=== PATIENT | female | born 1960 | race Caucasian/White ===

== ENCOUNTER → 2020-04-01 11:01 | Outpatient (BNVA) | payer MEDICARE, MEDICAID, SELFPAY | PROVIDERS: Family Provider Family Medicine; PCP Family Medicine; Visit Provider Nurse Practitioner Family | DX: F41.8 Other specified anxiety disorders; R53.83 Other fatigue; F32.9 Major depressive disorder, single episode, unspecified; H66.90 Otitis media, unspecified, unspecified ear; B37.3 Candidiasis of vulva and vagina | CPT/HCPCS: 80053; 85025 ==

== ENCOUNTER → 2023-03-06 11:29 | Outpatient (BNVA) | payer MEDICARE, MEDICAID, SELFPAY | PROVIDERS: Family Provider Family Medicine; PCP Family Medicine; Visit Provider Nurse Practitioner | DX: I10 Essential (primary) hypertension (principal); S86.911A Strain of unspecified muscle(s) and tendon(s) at lower leg level, right leg, initial encounter; X58.XXXA Exposure to other specified factors, initial encounter | CPT/HCPCS: 73562; 80053; 80061; 84443; 85025 ==

== ENCOUNTER → 2023-09-28 14:18 | Outpatient (BNVA) | payer MEDICARE, MEDICAID, SELFPAY | PROVIDERS: Family Provider Family Medicine; PCP Nurse Practitioner Family; Visit Provider Nurse Practitioner Family | DX: I10 Essential (primary) hypertension (principal); R53.83 Other fatigue; Z13.6 Encounter for screening for cardiovascular disorders; Z79.899 Other long term (current) drug therapy; D64.9 Anemia, unspecified; K29.70 Gastritis, unspecified, without bleeding | CPT/HCPCS: 80053; 80061; 81003; 82272; 82728; 83036; 84443; 85025 ==

== ENCOUNTER 2023-10-12 07:28 | Outpatient (CLI) | payer MEDICARE, MEDICAID, SELFPAY ==
--- NOTE | 2023-10-12 07:30 | US_ITS ---
WS: [id number] Complete ABDOMINAL ULTRASOUND HISTORY: R74.8 - Abnormal levels of other serum enzymes COMPARISON: None available. Liver: 12.1 cm in length. Normal size liver and echogenicity. No bile duct dilatation or mass. Portal Vein: Normal hepatopetal flow with monophasic waveform. Gallbladder: Normally distended gallbladder with no stones or wall thickening. CBD: 0.5 cm Pancreas: Normal size and echogenicity. Right kidney: 9.1 cm x 4.1 x 4.4 cm. Cortex:0.9 cm. Normal size and echogenicity. No hydronephrosis or mass. Left kidney: 8.2 cm x 3.9 cm x 4.2 cm. Cortex: 1.0 cm. Normal size and echogenicity. No hydronephrosis or mass. Spleen: 7.6 cm. Normal size and echogenicity. Aorta and IVC: Unremarkable abdominal aorta and IVC. Impression: Normal complete abdomen ultrasound.
== END 2023-10-12 07:29 | disposition home or self-care (01) ==
LOC: RAD 07:29
PROVIDERS: PCP Nurse Practitioner Family; Visit Provider Nurse Practitioner Family
DX: R74.8 Abnormal levels of other serum enzymes (principal); R79.89 Other specified abnormal findings of blood chemistry; K92.1 Melena; K29.00 Acute gastritis without bleeding
CPT/HCPCS: 76700

== ENCOUNTER 2024-05-01 15:55 | Outpatient (CLI) | payer MEDICARE, MEDICAID, SELFPAY ==
--- NOTE | 2024-05-01 16:00 | MM_ITS ---
WS: [id number] BILATERAL 3D TOMOSYNTHESIS DIGITAL SCREENING MAMMOGRAPHY WITH CAD CLINICAL INFORMATION: SCREENING HISTORY: Screening mammogram. No current complaints. COMPARISON: Outside studies from 2019 TECHNIQUE: Bilateral CC and MLO views. FINDINGS: The breasts are composed of heterogeneous fibroglandular density tissue, which can limit the detectio n of small underlying mass lesions. No suspicious mass, asymmetry, calcifications, or architectural d istortion. No evidence of malignancy. Vascular calcification. MM/MM [facility] tomosynthesis [id number] IMPRESSION: DENSITY: The breasts are heterogeneously dense, which may obscure small masses. BI-RADS: 2 - Benign FOLLOW UP: 1 Year Follow-up Recommend return to annual screening mammography.
== END 2024-05-01 15:56 | disposition home or self-care (01) ==
LOC: MOBLMAM 16:01
PROVIDERS: PCP Nurse Practitioner Family; Visit Provider Nurse Practitioner Family
DX: Z12.31 Encounter for screening mammogram for malignant neoplasm of breast (principal); R92.333 Mammographic heterogeneous density, bilateral breasts; R92.1 Mammographic calcification found on diagnostic imaging of breast
CPT/HCPCS: 77063; 77067

== ENCOUNTER → 2024-06-12 14:51 | Outpatient (BNVA) | payer MEDICARE, MEDICAID, SELFPAY | PROVIDERS: PCP Nurse Practitioner Family; Visit Provider Podiatrist Foot & Ankle Surgery | DX: S82.852A Displaced trimalleolar fracture of left lower leg, initial encounter for closed fracture; W54.1XXA Struck by dog, initial encounter | CPT/HCPCS: 99204 ==

== ENCOUNTER 2024-06-17 06:42 | Day surgery (SDC) | payer MEDICARE, MEDICAID, SELFPAY ==
[2024-06-17] VITALS (10 sets, daily range): BP systolic 122–144; BP diastolic 60–115; PULSE 82–102; RESP 14–18; TEMP 36.3–37.5; O2SAT 93–98; BMI 25.6
--- NOTE | 2024-06-17 | XR_ITS ---
WS: [id number] Left ankle, C-arm fluoroscopy views, 06/17/2024 Clinical Data: BRAD PICS Comparison: Left ankle, 06/11/2024 Findings: Dr. Ruiz performed internal fixation of the bimalleolar fracture. XR/XR ankle LT min 3V* [id number] Impression: Internal fixation of bimalleolar fracture of the left ankle.
[2024-06-17] MEDS: sodium chloride 0.9% 1,000 ML 30 ML IV (07:14)
[2024-06-17] MEDS: acetaminophen 1,000 MG/100 ML PIGGYBACK 400 MG IV (07:15)
[2024-06-17] MEDS: gabapentin 300 mg Capsule PO (07:18)
--- NOTE | 2024-06-17 08:22 | P.HPUD_ITS ---
Surgery/Procedure H&P Update DATE OF PROCEDURE: June 17, 2024 DATE H&P PERFORMED: 06/12/24 H&P UPDATE INFORMATION: I have reviewed H&P completed within last 30 days, I have examined patient prior to procedure, No changes to prior documentation and H&P is in [facility] [place] EMR on date indicated PREOP DIAGNOSIS: Left trimalleolar ankle fracture PLANNED PROCEDURE: Operation Date: 06/17/24 08:20 Proposed Procedures p ORIF left trimalleolar(Left) - Shaggy Ruiz DPM s Ankle Arthroscopy(Left) - Shaggy Ruiz DPM
[2024-06-17] MEDS: clindamycin 600 MG/50 ML PREMIX 100 MG IV (08:40)
--- NOTE | 2024-06-17 08:40 | ANES.PREANE2 ---
Pre-Anesthetic Assessment Height/Weight: Height 4 ft 11 in Weight 127 lb Temp Pulse Resp BP Pulse Ox O2 Del Method 99.5 F 101 H 18 140/115 95 Room Air 06/17/24 07:04 06/17/24 07:04 06/17/24 07:04 06/17/24 07:04 06/17/24 07:04 06/17/24 07:04 Preop Diagnosis: Left trimalleolar ankle fracture Operation Date: 06/17/24 08:20 Proposed Procedures p ORIF left trimalleolar(Left) - Shaggy Ruiz DPM s Ankle Arthroscopy(Left) - Shaggy Ruiz DPM Was Beta Argelia taken within 24 hours: N/A Was Clonidine taken within 24 hours: N/A Last intake: Intake Last Liquid Date 06/16/24 Last Liquid Time 23:30 Last Solid Date 06/16/24 Last Solid Time 20:00 Social No alcohol and No tobacco Quit vaping 3 months ago Exam alert, oriented x 3, clear to auscultation bilaterally and regular rate & rhythm Airway Submandibular: within normal limits Cervical ROM: within normal limits Mallampati: Class II Dentition: other (Edentulous) Anesthetic Plan ASA status: 2 Anesthesia: General Other: No prior issues with anesthesia NPO since yesterday History of GERD on Protonix Quit smoking 3 months ago METs greater than 4 Plan for general anesthesia with post induction nerve block Medications/Allergies Home Medications Medication Instructions Recorded Confirmed Last Taken Type ibuprofen 200 mg capsule 400 mg PO BID PRN Pain 09/28/23 06/13/24 06/16/24 History pantoprazole 40 mg tablet,delayed 40 mg PO DAILY 30 days #30 tabs 05/02/24 06/13/24 06/16/24 Rx release (Protonix) Walker with seat #1 ea 06/12/24 06/13/24 Unknown Rx aspirin 81 mg capsule 81 mg PO DAILY 06/13/24 06/13/24 06/16/24 History oxycodone-acetaminophen 5 mg-325 1 tab PO Q6H Pain 06/13/24 06/13/24 06/17/24 06:15 History mg tablet hydrocodone 5 mg-acetaminophen 325 1 tab PO Q6H PRN pain #28 tabs 06/17/24 Unknown Rx mg tablet Allergies Allergy/AdvReac Type Severity Reaction Status Date / Time Penicillins Allergy Intermediate convulsions Verified 06/13/24 12:36 Current Medications Generic Name Dose Route Start Last Admin Trade Name Jimena PRN Reason Stop Dose Admin Sodium Chloride 1,000 mls @ 30 mls/hr 06/17/24 07:00 06/17/24 07:14 Sodium Chloride 0.9% IV 06/18/24 06:59 30 mls/hr .Q24H HARSH Administration PFSH Anesthesia Medical History Elevated ferritin Elevated liver enzymes Enrolled in chronic care management please do not remove from active Gastritis Medication management Chest pain Essential hypertension Restless leg syndrome Influenza vaccine needed Candidiasis of vagina Otitis media Fatigue Anxiety and depression Depression with anxiety Osteoarthritis Surgical History S/P laminectomy Family History Sister Liver cancer Social History Smoking and tobacco/nicotine status: former use of tobacco/nicotine Second hand smoke exposure: No Alcohol intake: never Substance/Drug Use: never Data Anesthesia Cardiac Studies: No Data to Display
--- NOTE | 2024-06-17 08:59 | ANES.PROC ---
Anesthesia Procedures Procedure/Date: 06/17/24 Nerve Block ^: Nerve Block 1: Main Anesthesia: general anesthesia Time Out Performed: Yes Consent: requested by attending/covering physician and from patient Nerve block location: popliteal Anesthesia monitors applied: pulse oximetry, EKG, BP cuff and oxygen Nerve block position: supine Anesthetic Used: ropivicaine 0.5% Amount of anesthesia used (mL): 20 Ultrasound used to: recognize landmarks Interscalene/Femoral BLK: other needle (pjunk 4inch) Injection: neg aspiration of heme Patient Tolerated Procedure: well Complications: none Additional Comments: decadron 4mg added to block Nerve Block 2: Main Anesthesia: general anesthesia Time Out Performed: Yes Consent: requested by attending/covering physician and from patient Nerve block location: adductor canal Anesthesia monitors applied: pulse oximetry, EKG, BP cuff and oxygen Nerve block position: supine Anesthetic Used: ropivicaine 0.5% Amount of anesthesia used (mL): 10 Ultrasound used to: recognize landmarks Nerve Stimulator Used?: Yes Interscalene/Femoral BLK: other needle (pjunk 4inch) Injection: neg aspiration of heme Patient Tolerated Procedure: well Complications: none
--- NOTE | 2024-06-17 10:30 | W.PM.BPON ---
Date of procedure: 06/17/24 Surgeon name: DESHAUN BertrandM Educational Diagnostician(s) name(s): Leonardo Arenas Procedure(s) performed: ORIF left trimalleolar ankle fracture, arthroscopy left ankle Description of findings: left trimalleolar ankle fracture Estimated blood loss: 5cc Tourniquet time: 74 minutes Specimen(s) removed: none Post-operative diagnosis: left trimalleolar ankle fracture
--- NOTE | 2024-06-17 10:31 | P.OP_ITS ---
Operative Report Date of procedure: June 17, 2024 Surgeon: Shaggy Ruiz DPM
--- NOTE | 2024-06-17 10:31 | P.OP_ITS ---
Operative Report Date of procedure: June 17, 2024 Surgeon: Shaggy Ruiz DPM Procedure: Date of procedure: 06/17/2024 Pre-op diagnosis: Left trimalleolar ankle fracture Post-op diagnosis: Same Post-op findings: Left trimalleolar ankle fracture Procedure done: 1. ORIF left trimalleolar ankle fracture CPT 33287 2. Left ankle arthroscopy CPT 70652 Implants: Anatomic fibular plate with corresponding locking and nonlocking scr ews from [employer], two 3.5 headed short threaded screws from [employer] Specimens removed: None Surgeon: Dr. Shaggy Ruiz DPM Office Electrician: Leonardo Arenas Estimated blood loss: 5 cc Tourniquet time: 74 minutes Complications: None Patient is a 63-year-old female that has a history of left trimalleolar ankle fracture. The extent of the injury warrants open reduction internal fixation. A lengthy discussion regarding the procedure, including risks and complications has been had with the patient and is noted in the recent clinic note. Written and verbal consent have been obtained. All patient questions have been answered to the patient?s satisfaction. No written or verbal guarantees have been given or implied. The patient has been NPO since midnight. The history has been reviewed and the history and physical is current. The signed consent was confirmed and placed in the patient chart. Patient imaging has been reviewed and is consistent with the diagnosis. Under mild sedation, the patient was brought into the operating room and placed on the table in the supine position. IV antibiotics were given by the anesthesia team as preoperative surgical prophylaxis. General sedation was then performed by the anesthesiateam. A popliteal and adductor canal block was performed with anesthesia department. A pneumatic tourniquet was then placed about the left thigh. The operative extremity was then prepped and draped in the usual fashion. The extremity was then elevated and exsanguinated before the tourniquet was inflated to 325 mmHg. After inflation, the following procedure was then performed. Attention was directed to the lateral aspect of the left ankle where an 8 cm incision was made overlying the fibula using a #15 blade. Dissection was carried down through subcutaneous superficial fascia to the level of the fibula. Fracture hematoma was visualized. Periosteum was incised to expose the fracture. Hematoma was removed from the fracture site. There was noted to be significant comminution. The fibula was reduced to an appropriate anatomic position before an anatomic fibular plate was positioned on the lateral aspect of the fibula. The distal holes of the plate were drilled and filled per manufacture protocol before the proximal holes of the plate were filled. Good position of the plate and screws was noted on C-arm imaging. Next, attention was directed to the medial aspect of the left ankle. An incision was made overlying the medial malleolus. Dissection was carried down through subcutaneous superficial fascia to the level of the medial malleolus fracture. Hematoma was removed from the fracture site. [id number] reduction clamp was used to reduce the medial malleolus. The bone was noted to be extremely soft. 2 guidewires were driven across fracture site in preparation for the cannulated screw. Next, the drill was used to overdrilled the wires in preparation for the headed compression screws. These were inserted over the wires across fracture site. Good position of the screws was noted. There was noted to be remaining lip to the medial gutter. Attention was then directed to the lateral aspect of the ankle where ly scope arthroscopy set was inserted into the ankle joint after a mosquito hemostat was used to bluntly puncture the joint capsule. The Ly scope was used to assess the ankle joint for any osteochondral defect of which none was noted. The reduction of the medial malleolus was anatomically appropriate. Attention was directed to the medial aspect of the ankle where once again mosquito hemostat was used to bluntly puncture the joint capsule and the Ly scope was once again inserted. Mary-Bubba sign was noted to lateral aspect of the ankle. Syndesmosis was stressed and was noted to be intact. Ly scope was removed. Incisions were irrigated with copious amounts of sterile saline. Attention was directed to closure. Deep tissue was closed with 2-0 Vicryl followed by subcuticular closure with 4-0 Vicryl and skin closure with 3- 0 nylon. Tourniquet was let down and good hyperemic response was noted to all digits of the left foot. Hemostasis was noted to be achieved. Incision sites were dressed with Xeroform, 4 x 4 gauze, Kerlix, Shamar. Patient was placed in a cam boot. The patient tolerated the procedure and anesthesia well and without complication. The patient was transported from the operating room to the recovery room with vital signs stable and vascular status intact to all digits of the left foot. The patient was given both written and verbal instructions to remain nonweightbearing to the operative extremity, to keep dressings/splint clean, dry and intact and to take pain medication as directed. The patient will follow-up in the outpatient setting at their scheduled appointment. The patient was discharged with my personal number and was instructed to call if any questions or issues should arise. They were discharged home once anesthesia criteria was met.
--- NOTE | 2024-06-17 11:44 | ANE.PACU2 ---
Inpatient post-anesthesia follow up: Airway intact: Yes Vital signs: Temperature 97.4 F Pulse Rate 102 Respiratory Rate 16 Blood Pressure 138/88 Pulse Oximetry 97 Oxygen Delivery Me thod Room Air Oxygen Flow Rate 5 Fraction of Inspir ed Oxygen Hydration adequate: Yes Nausea and vomiting: No Pain level: 1 Mental status: Baseline
== END 2024-06-17 11:45 | disposition home or self-care (01) ==
PROVIDERS: PCP Nurse Practitioner Family; Visit Provider Podiatrist Foot & Ankle Surgery
PROC: (CPT 27822; principal; 2024-06-17 08:10)
PROC: (CPT 27822; 2024-06-17 08:10)
DX: S82.852A Displaced trimalleolar fracture of left lower leg, initial encounter for closed fracture (principal); W54.1XXA Struck by dog, initial encounter; K21.9 Gastro-esophageal reflux disease without esophagitis; Z87.891 Personal history of nicotine dependence
CPT/HCPCS: 27822; 73610; 76000; C1713; J0131; J1100; J2250; J2371; J2405; J2704; J3010; J3490; J7030

== ENCOUNTER → 2024-07-01 12:48 | Outpatient (BNVA) | payer MEDICARE, MEDICAID, SELFPAY | PROVIDERS: PCP Nurse Practitioner Family; Visit Provider Podiatrist Foot & Ankle Surgery | DX: S82.852D Displaced trimalleolar fracture of left lower leg, subsequent encounter for closed fracture with routine healing; X58.XXXD Exposure to other specified factors, subsequent encounter | CPT/HCPCS: 73610; 99024 ==

== ENCOUNTER → 2024-07-17 15:09 | Outpatient (BNVA) | payer MEDICARE, MEDICAID, SELFPAY | PROVIDERS: PCP Nurse Practitioner Family; Visit Provider Podiatrist Foot & Ankle Surgery | DX: S82.852A Displaced trimalleolar fracture of left lower leg, initial encounter for closed fracture (principal); X58.XXXA Exposure to other specified factors, initial encounter | CPT/HCPCS: 73610; 99024 ==

== ENCOUNTER → 2024-08-05 15:31 | Outpatient (BNVA) | payer MEDICARE, MEDICAID, SELFPAY | PROVIDERS: PCP Nurse Practitioner Family; Visit Provider Podiatrist Foot & Ankle Surgery | DX: S82.852D Displaced trimalleolar fracture of left lower leg, subsequent encounter for closed fracture with routine healing (principal); Z98.890 Other specified postprocedural states; X58.XXXD Exposure to other specified factors, subsequent encounter | CPT/HCPCS: 73610; 99024 ==

== ENCOUNTER → 2024-08-19 16:03 | Outpatient (BNVA) | payer MEDICARE, MEDICAID, SELFPAY | PROVIDERS: PCP Nurse Practitioner Family; Visit Provider Podiatrist Foot & Ankle Surgery | DX: S82.852D Displaced trimalleolar fracture of left lower leg, subsequent encounter for closed fracture with routine healing (principal); Z98.890 Other specified postprocedural states; X58.XXXD Exposure to other specified factors, subsequent encounter | CPT/HCPCS: 73610 ==

== ENCOUNTER 2024-08-19 16:46 | Outpatient (CLI) | payer MEDICARE, MEDICAID, SELFPAY | END 2024-08-19 16:47 | disposition home or self-care (01) | LOC: SPT 16:47 | PROVIDERS: PCP Nurse Practitioner Family; Visit Provider Podiatrist Foot & Ankle Surgery | DX: Z46.89 Encounter for fitting and adjustment of other specified devices (principal); S82.852D Displaced trimalleolar fracture of left lower leg, subsequent encounter for closed fracture with routine healing; X58.XXXD Exposure to other specified factors, subsequent encounter | CPT/HCPCS: 99024; L1902 ==